=== PATIENT | female | born 1945 | race Caucasian/White ===

== ENCOUNTER 2022-09-05 22:11 | Inpatient (IN) | payer MEDICARE, OTHER ==
[2022-09-05] MEDS ORDERED: Furosemide 40 MG/4 ML VIAL ONE (22:14)
[2022-09-05 22:44] LABS: HEMATOCRIT 45.8 % (33.0-47.0); HEMOGLOBIN 15.1 g/dL (12.0-16.0); MEAN CORPUSCULAR HEMOGLOBIN 30.8 pg (26.0-32.0); MEAN CORPUSCULAR VOLUME 93.5 fL (78.0-93.0); PLATELET COUNT,PLT 279 x10^3/uL (130-400); WHITE BLOOD CELL COUNT,WBC 12.3 x10^3/uL (4.0-10.0)
[2022-09-05] MEDS ORDERED: cefTRIAXone 1 GM Vial IVPUSH ONE (22:46)
[2022-09-05 22:52] LABS: O2 SATURATION ARTERIAL,POC 99.2 % (94-98); PCO2 ARTERIAL,POC 44 mmHg (35-48); PH ARTERIAL,POC 7.27 pH (7.35-7.45); PO2 ARTERIAL,POC 164 mmHg (83-108)
[2022-09-05 22:53] LABS: BASE EXCESS ARTERIAL,POC -7 mmol/L ((-2)-3); TCO2 ARTERIAL,POC 19.4 mmol/L (22-29)
[2022-09-05 22:59] LABS: BAND PERCENT MAN 3 % (0-6); EOSINOPHILS ABSOLUTE MAN 0.4 x10^3/uL (0.0-0.5); EOSINOPHILS PERCENT MAN 3 % (0-4); LYMPHOCYTES % ATYPICAL MANUAL 8 % (0); LYMPHOCYTES ABSOLUTE MAN 6.9 x10^3/uL (1.0-4.8); LYMPHOCYTES PERCENT MAN 47 % (25-50); MONOCYTES PERCENT MAN 8 % (2-11); NEUTROPHILS ABSOLUTE MAN 4.1 x10^3/uL (1.8-7.7); SEG NEUTROPHILS PERCENT MAN 30 % (50-80)
[2022-09-05 23:00] LABS: PLATELET COUNT ESTIMATE ADEQUATE
[2022-09-05 23:10] LABS: ALANINE AMINOTRANSFERASE,ALT 36 U/L (14-59); ALBUMIN 3.6 g/dL (3.4-5.0); ALKALINE PHOSPHATASE 74 U/L (46-116); ASPARTATE AMNIOTRANSFERASE,AST 37 U/L (15-37); BILIRUBIN TOTAL 0.6 mg/dL (0.2-1.0); BLOOD UREA NITROGEN,BUN 16 mg/dL (7-18); CALCIUM 8.4 mg/dL (8.5-10.1); CARBON DIOXIDE,CO2 22 mmol/L (21-32); CHLORIDE,CL 102 mmol/L (98-107); CREATINE KINASE,CK 85 U/L (26-192); CREATININE 1.8 mg/dL (0.55-1.02); ESTIMATED GFR 29 mL/min (>=60); GLUCOSE RANDOM 313 mg/dL (70-99); PRO B-TYPE NATRIUR PEPT,BNPPRO 12071 pg/mL (<=450); PROTEIN TOTAL,TP 7.2 g/dL (6.4-8.2); SODIUM,NA 138 mmol/L (136-145)
[2022-09-05] MEDS ORDERED: Albuterol/Ipratropium 3.0-0.5 MG/3 ML Neb Soln NEB ONE (23:42)
[2022-09-06] MEDS ORDERED: Furosemide 20 MG/2 ML VIAL IV ONE (00:52)
[2022-09-06] MEDS ORDERED: Sodium Chloride 0.9% 1,000 ML IV SCH (01:00)
[2022-09-06] MEDS ORDERED: Acetaminophen 325 MG Tab PO PRN (01:11)
[2022-09-06] MEDS ORDERED: Ibuprofen 200 MG Tab PO PRN (01:11)
[2022-09-06] MEDS ORDERED: Sodium Chloride 0.9% 10 ML Syringe FLUSH PRN (01:11)
[2022-09-06] MEDS ORDERED: Ondansetron 4 MG Tab.DIS PO PRN (01:11)
[2022-09-06 06:52] LABS: HEMATOCRIT 42.5 % (33.0-47.0); HEMOGLOBIN 14.5 g/dL (12.0-16.0); MEAN CORPUSCULAR HEMOGLOBIN 30.6 pg (26.0-32.0); MEAN CORPUSCULAR HGB CONC 34.1 g/dL (32.0-36.0); MEAN CORPUSCULAR VOLUME 89.7 fL (78.0-93.0); RED BLOOD CELL COUNT 4.74 x10^6/uL (4.00-5.50)
[2022-09-06] MEDS ORDERED: Albuterol/Ipratropium 3.0-0.5 MG/3 ML Neb Soln NEB PRN (06:54)
[2022-09-06 07:11] LABS: ANION GAP 14.5 mmol/L (5-15); BLOOD UREA NITROGEN,BUN 17 mg/dL (7-18); CALCIUM 8.5 mg/dL (8.5-10.1); CARBON DIOXIDE,CO2 25 mmol/L (21-32); CHLORIDE,CL 105 mmol/L (98-107); CREATININE 1.2 mg/dL (0.55-1.02); ESTIMATED GFR 47 mL/min (>=60); GLUCOSE RANDOM 206 mg/dL (70-99); POTASSIUM,K 3.5 mmol/L (3.5-5.1); SODIUM,NA 141 mmol/L (136-145)
[2022-09-06] MEDS ORDERED: Iopamidol 755 Mg/ML 100 ML Bottle IVPUSH ONE (10:21)
[2022-09-06] MEDS: Aspirin 81 MG Tab.Chew PO SCH (10:24)
[2022-09-06] MEDS: Metoprolol Tartrate 25 MG Tab PO SCH ×2 (10:25→21:14)
[2022-09-06] MEDS: Furosemide 20 MG/2 ML VIAL IV SCH (10:33)
[2022-09-06 14:05] LABS: HEMOGLOBIN A1C 6.1 % (<5.7)
[2022-09-06] MEDS: Enoxaparin 60 MG/0.6 ML Syringe SUBCUT SCH ×2 (14:05→23:31)
[2022-09-07 06:53] LABS: BASOPHILS PERCENT AUTO 0.1 % (0.2-1.2); HEMATOCRIT 39.7 % (33.0-47.0); HEMOGLOBIN 13.7 g/dL (12.0-16.0); IMMATURE GRAN ABSOLUTE AUTO 0.01 x10^3/uL (0.00-0.07); LYMPHOCYTES ABSOLUTE AUTO 1.3 x10^3/uL (1.0-4.8); LYMPHOCYTES PERCENT AUTO 12.9 % (25.0-50.0); MEAN CORPUSCULAR HEMOGLOBIN 30.9 pg (26.0-32.0); MEAN CORPUSCULAR HGB CONC 34.5 g/dL (32.0-36.0); MEAN CORPUSCULAR VOLUME 89.4 fL (78.0-93.0); MONOCYTES ABSOLUTE AUTO 0.7 x10^3/uL (0.0-0.8); MONOCYTES PERCENT AUTO 6.3 % (2.0-11.0); NEUTROPHILS ABSOLUTE AUTO 8.3 x10^3/uL (1.8-7.7); NEUTROPHILS PERCENT AUTO 80.6 % (50.0-80.0); PLATELET COUNT,PLT 210 x10^3/uL (130-400); RED BLOOD CELL COUNT 4.44 x10^6/uL (4.00-5.50); WHITE BLOOD CELL COUNT,WBC 10.4 x10^3/uL (4.0-10.0)
[2022-09-07 07:09] LABS: CALCIUM 8.8 mg/dL (8.5-10.1); CREATININE 1.1 mg/dL (0.55-1.02); EST CRCL DRUG DOSING (CG) 35.43 mL/min
[2022-09-07 07:13] LABS: CHOLESTEROL HDL 35 mg/dL (40-59); CHOLESTEROL LDL CALCULATED 199 mg/dL (0-130); CHOLESTEROL TOTAL 252 mg/dL (0-199); POTASSIUM,K 3.7 mmol/L (3.5-5.1); TRIGLYCERIDES 89 mg/dL (0-149)
[2022-09-07 07:18] LABS: ANION GAP 13.7 mmol/L (5-15)
[2022-09-07] MEDS ORDERED: Furosemide 20 MG Tab PO SCH (09:00)
[2022-09-07] MEDS ORDERED: Rosuvastatin 20 MG Tab PO SCH (09:00)
[2022-09-07] MEDS: Metoprolol Tartrate 25 MG Tab PO SCH (09:10)
[2022-09-07] MEDS: Enoxaparin 60 MG/0.6 ML Syringe SUBCUT SCH (09:11)
[2022-09-07] MEDS: Aspirin 81 MG Tab.Chew PO SCH (09:11)
[2022-09-07] MEDS: Furosemide 20 MG/2 ML VIAL IV SCH (10:03)
== END 2022-09-07 14:05 | disposition home or self-care (01) | DRG 280 ==
LOC: VM.ED 22:11 → VM.MS 09-06 00:42
PROVIDERS: ADMIT Nurse Practitioner; ATTEND Internal Medicine
DX: I11.0 Hypertensive heart disease with heart failure (principal); I21.4 Non-ST elevation (NSTEMI) myocardial infarction; I50.23 Acute on chronic systolic (congestive) heart failure; I50.21 Acute systolic (congestive) heart failure; J96.01 Acute respiratory failure with hypoxia; R73.9 Hyperglycemia, unspecified; R73.03 Prediabetes; Z20.822 Contact with and (suspected) exposure to COVID-19; J96.02 Acute respiratory failure with hypercapnia; R00.0 Tachycardia, unspecified
CPT/HCPCS: 36415; 36600; 51702; 71045; 80053; 82550; 82803; 83880; 85025; 87040 ×2; 93005; 94640; 94660; 94760 ×2; 96374; 99285; J0696; J1940; 71275; 80048; 80061; 82947; 83036; 84484; 85027; 85379; 97161-GP; A9270-GY; J1650; J7030; J7620-GY; Q9967; U0002

== ENCOUNTER 2023-02-04 10:16 | Observation (INO) | payer MEDICARE, OTHER ==
[2023-02-04] MEDS ORDERED: Sodium Chloride 0.9% 10 ML Syringe FLUSH PRN (10:28)
[2023-02-04 10:43] LABS: BASOPHILS PERCENT AUTO 0.4 % (0.2-1.2); EOSINOPHILS ABSOLUTE AUTO 0.2 x10^3/uL (0.0-0.5); EOSINOPHILS PERCENT AUTO 3.1 % (0.0-4.0); HEMOGLOBIN 15.1 g/dL (12.0-16.0); IMMATURE GRAN ABSOLUTE AUTO 0.01 x10^3/uL (0.00-0.07); LYMPHOCYTES ABSOLUTE AUTO 2.1 x10^3/uL (1.0-4.8); LYMPHOCYTES PERCENT AUTO 28.9 % (25.0-50.0); MEAN CORPUSCULAR HGB CONC 34.3 g/dL (32.0-36.0); MEAN CORPUSCULAR VOLUME 90.3 fL (78.0-93.0); MONOCYTES ABSOLUTE AUTO 0.5 x10^3/uL (0.0-0.8); MONOCYTES PERCENT AUTO 7.2 % (2.0-11.0); NEUTROPHILS ABSOLUTE AUTO 4.3 x10^3/uL (1.8-7.7); NEUTROPHILS PERCENT AUTO 60.3 % (50.0-80.0); PLATELET COUNT,PLT 190 x10^3/uL (130-400); RED BLOOD CELL COUNT 4.87 x10^6/uL (4.00-5.50); WHITE BLOOD CELL COUNT,WBC 7.1 x10^3/uL (4.0-10.0)
[2023-02-04] MEDS: Sodium Chloride 0.9% 1,000 ML IV SCH (10:54)
[2023-02-04 11:05] LABS: PROTHROMBIN TIME 10.7 SEC (9.5-12.2); PTT,PARTIAL THROMBOPLSTIN TIME 27.8 SEC (23.6-33.6)
[2023-02-04 11:10] LABS: LACTIC ACID 1.5 mmol/L (0.4-2.0)
[2023-02-04 11:15] LABS: A/G RATIO 1.13; ALBUMIN 3.6 g/dL (3.4-5.0); ANION GAP 13.9 mmol/L (5-15); BILIRUBIN TOTAL 0.6 mg/dL (0.2-1.0); C-REACTIVE PROTEIN 0.12 mg/dL (<=0.30); CALCIUM 9.1 mg/dL (8.5-10.1); CREATININE 1.1 mg/dL (0.55-1.02); EST CRCL DRUG DOSING (CG) 35.43 mL/min; POTASSIUM,K 3.9 mmol/L (3.5-5.1); PROTEIN TOTAL,TP 6.8 g/dL (6.4-8.2)
[2023-02-04] MEDS: Metoprolol Tartrate 5 MG/5 ML SDV IVPUSH ONE (11:41)
[2023-02-04] MEDS ORDERED: Acetaminophen 325 MG Tab PO PRN (14:24)
[2023-02-04] MEDS: Ondansetron 4 MG/2 ML SDV IVPUSH PRN (21:06)
[2023-02-05] MEDS: Aspirin 81 MG Tab.Chew PO SCH (08:20)
[2023-02-05] MEDS: Metoprolol Succinate 25 MG Tab.ER PO SCH (08:21)
[2023-02-05] MEDS: Lisinopril 10 MG Tab PO SCH (08:21)
[2023-02-05] MEDS: Rosuvastatin 20 MG Tab PO SCH (08:21)
[2023-02-05] MEDS: Furosemide 20 MG Tab PO SCH (08:21)
== END 2023-02-05 09:30 | disposition home or self-care (01) ==
LOC: VM.ED 10:16 → VM.MS 14:04
PROVIDERS: ADMIT Physician Assistant; ATTEND Physician Assistant
DX: I48.91 Unspecified atrial fibrillation (principal); I11.0 Hypertensive heart disease with heart failure; I50.9 Heart failure, unspecified; Z79.82 Long term (current) use of aspirin; Z79.899 Other long term (current) drug therapy
CPT/HCPCS: 36415; 71045; 80053; 83605; 83735; 84484; 85025; 85610; 85730; 86140; 93005; 96361; 96374; 96375; 99285-25; A9270-GY; G0378; J2405; J3490; J7030

== ENCOUNTER 2023-03-27 02:36 | Emergency (ER) | payer MEDICARE, OTHER ==
[2023-03-27 03:38] LABS: BASOPHILS PERCENT AUTO 0.1 % (0.2-1.2); EOSINOPHILS ABSOLUTE AUTO 0.2 x10^3/uL (0.0-0.5); EOSINOPHILS PERCENT AUTO 2.1 % (0.0-4.0); HEMATOCRIT 40.1 % (33.0-47.0); HEMOGLOBIN 13.6 g/dL (12.0-16.0); IMMATURE GRAN ABSOLUTE AUTO 0.02 x10^3/uL (0.00-0.07); LYMPHOCYTES ABSOLUTE AUTO 1.2 x10^3/uL (1.0-4.8); LYMPHOCYTES PERCENT AUTO 16.1 % (25.0-50.0); MEAN CORPUSCULAR HGB CONC 33.9 g/dL (32.0-36.0); MEAN CORPUSCULAR VOLUME 91.3 fL (78.0-93.0); MONOCYTES ABSOLUTE AUTO 0.5 x10^3/uL (0.0-0.8); MONOCYTES PERCENT AUTO 6.8 % (2.0-11.0); NEUTROPHILS ABSOLUTE AUTO 5.7 x10^3/uL (1.8-7.7); NEUTROPHILS PERCENT AUTO 74.6 % (50.0-80.0); PLATELET COUNT,PLT 185 x10^3/uL (130-400); RED BLOOD CELL COUNT 4.39 x10^6/uL (4.00-5.50); WHITE BLOOD CELL COUNT,WBC 7.6 x10^3/uL (4.0-10.0)
[2023-03-27 03:52] LABS: CALCIUM 8.7 mg/dL (8.5-10.1); CREATININE 1.2 mg/dL (0.55-1.02); EST CRCL DRUG DOSING (CG) 32.48 mL/min; POTASSIUM,K 3.4 mmol/L (3.5-5.1)
[2023-03-27 03:53] LABS: ANION GAP 13.4 mmol/L (5-15)
== END 2023-03-27 04:20 | disposition home or self-care (01) ==
LOC: VM.ED 02:36
DX: I48.91 Unspecified atrial fibrillation (principal); I11.0 Hypertensive heart disease with heart failure; I50.9 Heart failure, unspecified; Z79.01 Long term (current) use of anticoagulants; Z79.899 Other long term (current) drug therapy
CPT/HCPCS: 36415; 80048; 84484; 85025; 93005; 93010; 99284; 99285

== ENCOUNTER 2023-06-11 13:29 | Inpatient (IN) | payer MEDICARE, OTHER ==
[2023-06-11] MEDS: Lactated Ringers 1,000 ML IV ONE (13:53)
[2023-06-11] MEDS: Ondansetron 4 MG/2 ML SDV IVPUSH ONE (13:53)
[2023-06-11 13:55] LABS: APPEARANCE,URINE CLEAR (CLEAR); BILIRUBIN,URINE SMALL (NEGATIVE); GLUCOSE,URINE NEGATIVE (NEGATIVE); KETONES,URINE NEGATIVE (NEGATIVE); LEUKOCYTE ESTERASE,URINE NEGATIVE (NEGATIVE); NITRITE,URINE NEGATIVE (NEGATIVE); OCCULT BLOOD,URINE NEGATIVE (NEGATIVE); PROTEIN,URINE 30 mg/dL (NEGATIVE); UROBILINOGEN,URINE 0.2 EU/dL (0.2)
[2023-06-11 13:57] LABS: BASOPHILS PERCENT AUTO 0.2 % (0.2-1.2); EOSINOPHILS PERCENT AUTO 0.4 % (0.0-4.0); HEMATOCRIT 44.4 % (33.0-47.0); HEMOGLOBIN 15.5 g/dL (12.0-16.0); IMMATURE GRAN ABSOLUTE AUTO 0.01 x10^3/uL (0.00-0.07); LYMPHOCYTES ABSOLUTE AUTO 2.8 x10^3/uL (1.0-4.8); LYMPHOCYTES PERCENT AUTO 30.2 % (25.0-50.0); MEAN CORPUSCULAR HEMOGLOBIN 31.3 pg (26.0-32.0); MEAN CORPUSCULAR HGB CONC 34.9 g/dL (32.0-36.0); MEAN CORPUSCULAR VOLUME 89.7 fL (78.0-93.0); MONOCYTES ABSOLUTE AUTO 0.7 x10^3/uL (0.0-0.8); MONOCYTES PERCENT AUTO 7.7 % (2.0-11.0); NEUTROPHILS ABSOLUTE AUTO 5.8 x10^3/uL (1.8-7.7); NEUTROPHILS PERCENT AUTO 61.4 % (50.0-80.0); PLATELET COUNT,PLT 228 x10^3/uL (130-400); RED BLOOD CELL COUNT 4.95 x10^6/uL (4.00-5.50); WHITE BLOOD CELL COUNT,WBC 9.4 x10^3/uL (4.0-10.0)
[2023-06-11 13:58] LABS: COLOR,URINE DARK YELLOW (YELLOW)
[2023-06-11 13:59] LABS: BACTERIA,URINE OCCASIONAL /HPF (NOT SEEN); MUCUS,URINE OCCASIONAL /LPF (NOT SEEN); RBC,URINE 0-5 /HPF (NOT SEEN); SQUAMOUS EPITHELIAL CELLS,UR FEW /HPF (NOT SEEN); WBC,URINE 0-5 /HPF (NOT SEEN)
[2023-06-11 14:15] LABS: A/G RATIO 1.26; ALANINE AMINOTRANSFERASE,ALT 39 U/L (14-59); ALBUMIN 3.9 g/dL (3.4-5.0); ALKALINE PHOSPHATASE 55 U/L (46-116); ASPARTATE AMNIOTRANSFERASE,AST 21 U/L (15-37); BLOOD UREA NITROGEN,BUN 17 mg/dL (7-18); CALCIUM 9.4 mg/dL (8.5-10.1); CARBON DIOXIDE,CO2 24 mmol/L (21-32); CHLORIDE,CL 98 mmol/L (98-107); CREATININE 1.8 mg/dL (0.55-1.02); GLUCOSE RANDOM 153 mg/dL (70-99); MAGNESIUM 2.1 mg/dL (1.8-2.4); POTASSIUM,K 3.9 mmol/L (3.5-5.1); SODIUM,NA 135 mmol/L (136-145)
[2023-06-11 14:16] LABS: ANION GAP 16.9 mmol/L (5-15); C-REACTIVE PROTEIN < 0.50 mg/dL (<=0.50); ESTIMATED GFR 29 mL/min (>=60)
[2023-06-11] MEDS: Sodium Chloride 0.9% 1,000 ML IV ONE (14:25)
[2023-06-11] MEDS ORDERED: Sodium Chloride 0.9% 500 ML IV SCH (14:30)
[2023-06-11] MEDS: Diltiazem 50 MG/10 ML SDV IVPUSH ONE (15:06)
[2023-06-11] MEDS ORDERED: Acetaminophen 325 MG Tab PO PRN (16:39)
[2023-06-11] MEDS: Take Home: Ondansetron 4 MG Tab.DIS, 5 Tab Pack PO ONE (17:32)
[2023-06-11] MEDS: Apixaban 2.5 MG Tab PO SCH (20:16)
[2023-06-11] MEDS: Rosuvastatin 20 MG Tab PO SCH (20:16)
[2023-06-12] MEDS: Ondansetron 4 MG/2 ML SDV IVPUSH PRN (06:29)
[2023-06-12 07:02] LABS: BASOPHILS PERCENT AUTO 0.4 % (0.2-1.2); EOSINOPHILS ABSOLUTE AUTO 0.1 x10^3/uL (0.0-0.5); HEMATOCRIT 37.3 % (33.0-47.0); HEMOGLOBIN 12.7 g/dL (12.0-16.0); IMMATURE GRAN ABSOLUTE AUTO 0.01 x10^3/uL (0.00-0.07); LYMPHOCYTES ABSOLUTE AUTO 1.7 x10^3/uL (1.0-4.8); LYMPHOCYTES PERCENT AUTO 34.6 % (25.0-50.0); MEAN CORPUSCULAR HEMOGLOBIN 31.3 pg (26.0-32.0); MEAN CORPUSCULAR VOLUME 91.9 fL (78.0-93.0); MONOCYTES ABSOLUTE AUTO 0.5 x10^3/uL (0.0-0.8); MONOCYTES PERCENT AUTO 9.1 % (2.0-11.0); NEUTROPHILS ABSOLUTE AUTO 2.7 x10^3/uL (1.8-7.7); NEUTROPHILS PERCENT AUTO 54.7 % (50.0-80.0); PLATELET COUNT,PLT 164 x10^3/uL (130-400); RED BLOOD CELL COUNT 4.06 x10^6/uL (4.00-5.50); WHITE BLOOD CELL COUNT,WBC 4.9 x10^3/uL (4.0-10.0)
[2023-06-12 07:17] LABS: ANION GAP 14.3 mmol/L (5-15); CALCIUM 8.7 mg/dL (8.5-10.1); CREATININE 1.4 mg/dL (0.55-1.02); EST CRCL DRUG DOSING (CG) 27.84 mL/min; POTASSIUM,K 4.3 mmol/L (3.5-5.1)
[2023-06-12] MEDS: Metoprolol Succinate 50 MG Tab.ER PO SCH (08:18)
[2023-06-12] MEDS: Multivitamin Tab PO SCH (08:19)
[2023-06-12] MEDS: Furosemide 20 MG Tab PO SCH (08:19)
[2023-06-12] MEDS: Lisinopril 10 MG Tab PO SCH (08:20)
[2023-06-12] MEDS: Spironolactone 25 MG Tab PO SCH (08:23)
[2023-06-12] MEDS: Pantoprazole 40 MG Vial IVPUSH SCH (09:11)
[2023-06-12] MEDS: Sodium Chloride 0.9% 10 ML Syringe FLUSH PRN (09:13)
[2023-06-12] MEDS: Iopamidol 612 MG/ML 30 ML SDV IVPUSH ONE (11:36)
[2023-06-12] MEDS: Iopamidol 612 MG/ML 100 ML Bottle IVPUSH ONE (11:36)
[2023-06-13 06:30] LABS: BASOPHILS PERCENT AUTO 0.4 % (0.2-1.2); EOSINOPHILS ABSOLUTE AUTO 0.1 x10^3/uL (0.0-0.5); EOSINOPHILS PERCENT AUTO 1.5 % (0.0-4.0); HEMATOCRIT 39.7 % (33.0-47.0); HEMOGLOBIN 13.5 g/dL (12.0-16.0); LYMPHOCYTES ABSOLUTE AUTO 1.5 x10^3/uL (1.0-4.8); LYMPHOCYTES PERCENT AUTO 27.9 % (25.0-50.0); MEAN CORPUSCULAR HEMOGLOBIN 30.9 pg (26.0-32.0); MEAN CORPUSCULAR VOLUME 90.8 fL (78.0-93.0); MONOCYTES ABSOLUTE AUTO 0.5 x10^3/uL (0.0-0.8); MONOCYTES PERCENT AUTO 8.8 % (2.0-11.0); NEUTROPHILS ABSOLUTE AUTO 3.2 x10^3/uL (1.8-7.7); NEUTROPHILS PERCENT AUTO 61.4 % (50.0-80.0); PLATELET COUNT,PLT 165 x10^3/uL (130-400); RED BLOOD CELL COUNT 4.37 x10^6/uL (4.00-5.50); WHITE BLOOD CELL COUNT,WBC 5.2 x10^3/uL (4.0-10.0)
[2023-06-13 06:44] LABS: CREATININE 1.4 mg/dL (0.55-1.02); EST CRCL DRUG DOSING (CG) 27.84 mL/min; POTASSIUM,K 4.2 mmol/L (3.5-5.1)
[2023-06-13 06:46] LABS: ANION GAP 12.2 mmol/L (5-15)
== END 2023-06-13 10:30 | disposition home or self-care (01) | DRG 683 ==
LOC: VM.ED 13:29 → VM.MS 15:19
PROVIDERS: ADMIT Nurse Practitioner Family; ATTEND Internal Medicine
DX: K52.9 Noninfective gastroenteritis and colitis, unspecified (principal); I48.91 Unspecified atrial fibrillation; I11.0 Hypertensive heart disease with heart failure; I50.9 Heart failure, unspecified; N17.9 Acute kidney failure, unspecified; I13.0 Hypertensive heart and chronic kidney disease with heart failure and stage 1 through stage 4 chronic kidney disease, or unspecified chronic kidney disease; I50.22 Chronic systolic (congestive) heart failure; E86.0 Dehydration; R09.89 Other specified symptoms and signs involving the circulatory and respiratory systems; I25.10 Atherosclerotic heart disease of native coronary artery without angina pectoris; I48.0 Paroxysmal atrial fibrillation; I44.7 Left bundle-branch block, unspecified; N18.9 Chronic kidney disease, unspecified; I71.43 Infrarenal abdominal aortic aneurysm, without rupture; Z79.899 Other long term (current) drug therapy; I25.2 Old myocardial infarction; Z79.01 Long term (current) use of anticoagulants
CPT/HCPCS: 36415; 74177; 80048; 80053; 81001; 83690; 83735; 84484; 85025; 86140; 93005; 93010; 96361; 96374; 96375; 99284; 99284-25; A9270-GY; C9113; J2405; J3490; J7030; J7120; Q9967